=== PATIENT | female | born 1995 | race Hispanic/Latino ===

== ENCOUNTER 2018-11-29 06:37 | Inpatient (IN) ==
[2018-11-29] MEDS ORDERED: TYLENOL PO PRN (06:53)
[2018-11-29] MEDS ORDERED: PEPCID PO PRN ×2 (06:53)
[2018-11-29] MEDS ORDERED: PEPCID IV PRN (06:53)
[2018-11-29] MEDS ORDERED: REGLAN PO PRN (06:53)
[2018-11-29] MEDS ORDERED: ZOFRAN IV PRN (06:53)
[2018-11-29] MEDS ORDERED: KEFZOL 1 GM/D5W 1 GM/50 ML IVPB IV PRN (06:53)
[2018-11-29] MEDS ORDERED: STADOL IV PRN (06:53)
[2018-11-29] MEDS ORDERED: AMPICILLIN 2 GM/NS 2 GM/100 ML IVPB IV ONE (06:53)
[2018-11-29] MEDS ORDERED: SODIUM CHLORIDE 0.9% INJ SCH (07:00)
[2018-11-29] MEDS ORDERED: PITOCIN 30 UNITS/NS 30 UNIT/500 ML IV.SOLN IV SCH ×2 (07:00→08:45)
[2018-11-29] MEDS ORDERED: LR 1,000 ML IV SCH (07:00)
[2018-11-29] MEDS ORDERED: XYLOCAINE-MPF 1% INJ PRN ×2 (07:02→08:36)
[2018-11-29] MEDS ORDERED: MINERAL OIL TOP PRN (07:02)
[2018-11-29 08:06] LABS: BASO# 0.02 X1000 (0.0-0.2); BASO% 0.3 % (0.0-0.8); EOS# 0.01 X1000 (0.0-0.7); EOS% 0.1 % (0.0-10.0); IMM GRAN# 0.02 X1000 (0.0-0.04); IMM GRAN% 0.3 % (0.0-0.5); LYMPH# 1.74 X1000 (1.2-3.4); LYMPH% 22.2 % (20.5-51.1); MCH 27.8 PG (27-31); MCHC 32.4 g/dL (33-37); MCV 85.6 FL (81-99); MONO% 7.6 % (1.7-9.3); MPV 13.7 FL (7.4-10.4); NEUT# 5.46 X1000 (1.4-6.5); NEUT% 69.5 % (42.2-75.2); PLT 152 X1000 (130-400); RBC 4.32 XMIL (4.2-5.4); RDW 13.4 % (11.5-14.5); WBC 7.85 X1000 (4.8-10.8)
[2018-11-29 08:13] LABS: URINE SOURCE VOIDED
[2018-11-29 08:22] LABS: UR AMPHETAMINES QUAL PRESUMPTIVE POSITIVE (NONE DETECT); UR BARBITUATES QUAL NONE DETECTED (NONE DETECT); UR BENZODIAZEPIN QUAL NONE DETECTED (NONE DETECT); UR CANNABINOIDS QUAL NONE DETECTED (NONE DETECT); UR COCAINE QUAL NONE DETECTED (NONE DETECT); UR METHADONE QUAL NONE DETECTED (NONE DETECT); UR METHAMPHETAMINE QUAL PRESUMPTIVE POSITIVE (NONE DETECT); UR OPIATES QUAL NONE DETECTED (NONE DETECT); UR OXYCODONE QUAL NONE DETECTED (NONE DETECT); UR PCP QUAL NONE DETECTED (NONE DETECT); UR PROPOXYPHENE QUAL NONE DETECTED (NONE DETECT); UR TCA QUAL NONE DETECTED (NONE DETECT)
[2018-11-29 08:23] LABS: BILIRUBIN URINE NEGATIVE (NEGATIVE); BLOOD URINE 4+ (NEGATIVE); CLARITY HAZY (CLEAR); COLOR YELLOW; GLUCOSE URINE NEGATIVE (NEGATIVE); KETONE URINE 2+(Moderate) mg/dL (NEGATIVE); LEUKOCYTES URINE TRACE (NEGATIVE); NITRITE URINE NEGATIVE (NEGATIVE); PROTEIN URINE 2+(100 mg/dL) mg/dL (NEGATIVE); SP GRAVITY URINE 1.015; UROBILINOGEN URINE NORMAL
[2018-11-29] MEDS ORDERED: AMBIEN PO PRN (08:36)
[2018-11-29] MEDS ORDERED: CYTOTEC PO PRN (08:36)
[2018-11-29] MEDS ORDERED: ATARAX PO PRN (08:36)
[2018-11-29] MEDS ORDERED: PITOCIN IM PRN (08:36)
[2018-11-29] MEDS ORDERED: HYDROXYZINE IM PRN (08:36)
[2018-11-29] MEDS ORDERED: BOOSTRIX VACCINE IM ONE (08:36)
[2018-11-29] MEDS ORDERED: M-M-R II VACCINE SUBQ ONE (08:36)
[2018-11-29] MEDS ORDERED: BENADRYL PO PRN (08:36)
[2018-11-29] MEDS ORDERED: NORCO-5 PO PRN (08:36)
[2018-11-29] MEDS ORDERED: BENADRYL IV PRN (08:36)
[2018-11-29] MEDS ORDERED: PERI MEDS (DERMOPLAST/NUPERCAINAL/TUCKS) MISC PRN (08:36)
[2018-11-29] MEDS ORDERED: PITOCIN 20 UNITS/NS 20 UNITS/1,000 ML IV.SOLN ONE (08:39)
--- NOTE | 2018-11-29 09:04 | HISTORY AND PHYSICAL ---
CHIEF COMPLAINT: Labor. HISTORY OF PRESENT ILLNESS: Ms. Jerez is a 23-year-old, 2, para 1, at 38 weeks 2 days by stated EDC, with care with Dr. Osullivan starting at 15 weeks per the patient. chart is not available at the time of admission. She presented with a complaint of spontaneous onset of labor and rupture of membranes. The patient reports contractions started around 2 a.m., and then she had rupture of membranes with clear fluid at approximately 5 a.m. this morning. Upon presentation, the patient was 8 cm completely dilated, +1 station. Reported active baby. No vaginal bleeding. No PIH symptoms. PAST MEDICAL HISTORY: Denies. PAST SURGICAL HISTORY: Denies. GYNECOLOGICAL HISTORY: Denies. ALLERGIES: No known drug allergies. MEDICATIONS: vitamins. OBSTETRICAL HISTORY: 2, para 1, at 38.2 by stated EDC. 1, she had a spontaneous vaginal delivery. No complications. 2 is current . FAMILY HISTORY: Noncontributory. PHYSICAL EXAMINATION: GENERAL: Alert and oriented, in no acute distress. PULMONARY: Clear to auscultation bilaterally. CARDIOVASCULAR: Regular rate and rhythm. ABDOMEN: Soft, nondistended, gravid. Palpable contractions. EXTREMITIES: No clubbing, cyanosis, or edema. heart tones 140s. The patient is very uncooperative and in pain with monitoring. Cervix 8 cm completely dilated, +1 station, grossly ruptured, vertex. TOCO every 2 to 3 minutes. LABORATORY DATA: Pending at the time of presentation. PLAN: Ms. Jerez is a 23-year-old, 2, para 1, at 38.2 by stated EDC, who presented with spontaneous onset of labor and advanced stage. 1. Anticipate spontaneous vaginal delivery. 2. Desires fertility. cc: Fei Casanova MD
--- NOTE | 2018-11-29 09:06 | OPERATIVE NOTE ---
PROCEDURE DATE: 11/29/2018 Ms. Jerez is a 23-year-old 2 para 1 at 38 weeks and 2 days by stated EDC who presented with spontaneous onset of labor. Upon arrival, she was 8 cm, complete, vertex, and grossly ruptured clear fluid. The patient progressed to complete, complete, +3 station. She had spontaneous vaginal delivery of an female over a midline first-degree laceration with bilateral periurethral lacerations. The placenta was delivered spontaneously with trailing membranes. The midline first-degree was repaired with a 2-0 Vicryl in the usual fashion. The 2 periurethral tears were repaired with a 3-0 Vicryl in the usual fashion under lidocaine local anesthetic. She had an female, 6 pounds 4 ounces with Apgars 9 and 10. [facility]. COMPLICATIONS: No complications. ESTIMATED BLOOD LOSS: 300 mL. COUNTS: Correct sponge and instrument counts x3. cc: Fei Casanova MD
[2018-11-29] MEDS ORDERED: APRESOLINE IV ONE (09:11)
[2018-11-29] MEDS ORDERED: MAGNESIUM SULFATE 4 GM/S.W.I. 4 GM/100 ML IVPB IV ONE (09:12)
[2018-11-29 09:29] LABS: CREATININE 0.7 mg/dL (0.5-0.9)
[2018-11-29] MEDS ORDERED: MAGNESIUM SULFATE 40 GM/S.W.I. 40 GM/1,000 ML IV.SOLN IV SCH (10:00)
[2018-11-29] MEDS: MOTRIN PO PRN (10:38)
[2018-11-29] MEDS ORDERED: AMPICILLIN 1 GM/NS 1 GM/50 ML IVPB IV SCH (10:56)
[2018-11-29] MEDS: PERCOCET-10 PO PRN (16:52)
[2018-11-30] MEDS: MOTRIN PO PRN ×2 (04:14→14:10)
[2018-11-30] MEDS: PERCOCET-10 PO PRN ×2 (04:14→20:19)
[2018-11-30 06:13] LABS: BASO# 0.03 X1000 (0.0-0.2); BASO% 0.3 % (0.0-0.8); EOS# 0.08 X1000 (0.0-0.7); EOS% 0.8 % (0.0-10.0); IMM GRAN# 0.05 X1000 (0.0-0.04); IMM GRAN% 0.5 % (0.0-0.5); LYMPH# 2.68 X1000 (1.2-3.4); LYMPH% 25.5 % (20.5-51.1); MCHC 32.1 g/dL (33-37); MCV 87.2 FL (81-99); MONO# 0.93 X1000 (0.11-0.59); MONO% 8.9 % (1.7-9.3); MPV 13.2 FL (7.4-10.4); NEUT# 6.73 X1000 (1.4-6.5); PLT 153 X1000 (130-400); RBC 3.21 XMIL (4.2-5.4); RDW 13.4 % (11.5-14.5)
[2018-11-30] MEDS: PERICOLACE PO SCH ×2 (06:39→20:19)
[2018-11-30] MEDS: FERROUS SULFATE PO SCH (14:06)
[2018-12-01 08:21] VITALS: BP 126/86
[2018-12-01] MEDS: MOTRIN PO PRN (08:32)
[2018-12-01] MEDS: FERROUS SULFATE PO SCH (08:32)
[2018-12-01] MEDS ORDERED: PRECARE PO SCH (09:00)
--- NOTE | 2018-12-02 04:59 | DISCHARGE SUMMARY ---
ADMISSION DATE: 11/29/2018 DISCHARGE DATE: 12/01/2018 DISCHARGE DIAGNOSIS: A 38 to 39 weeks gestation. PROCEDURES: Spontaneous vaginal delivery. SUMMARY: A 23-year-old 2, para 1, presented at 38 to 39 weeks gestation complaining of spontaneous onset of labor with ruptured membranes. She had been a patient of Dr. Osullivan and denied complications with the , no record available for review. She was in spontaneous labor and ultimately had a vaginal delivery of a female over a first-degree vaginal laceration, which was repaired at the time of delivery. Her course was uncomplicated. Her hemoglobin was 12 antepartum and 9 , urine drug screen positive for amphetamine and methamphetamine. On the day of discharge, her physical exam revealed a nontender uterus with normal bleeding. She is discharged home in good condition on day 2. DIET: Regular. ACTIVITY: Pelvic rest. MEDICATIONS: Motrin 800 mg p.o. t.i.d. p.r.n. #30. FOLLOWUP: Will be with Dr. Zhu in 6 weeks. cc: MD Fei Boone MD
== END 2018-12-01 14:25 | disposition home or self-care (01) | DRG 806 ==
LOC: P.OPLD 06:37 → P.LD 06:40
PROVIDERS: ADMIT Obstetrics & Gynecology; ATTEND Obstetrics & Gynecology
CPT/HCPCS: 80104; 80301; 80305; 81003; 82565; 84450; 85025; 85461; 86592; 86850; 86870; 86900; 86901; A9270; G0431; G0434; G0477; J2590; J2790; J7120